=== PATIENT | male | born 1940 | race Caucasian/White ===

== ENCOUNTER 2022-05-07 22:16 | Inpatient (IN) | payer OTHER ==
[~2022-05-07] VITALS: Ht 175.3 cm; Wt 54.9 kg
[2022-05-08 00:13] LABS: HEMATOCRIT 39.2 % (36.7-47.1); MEAN CORPUSCULAR HEMOGLOBIN 28.2 uug (23.8-33.4); MEAN CORPUSCULAR VOLUME 90.1 fL (73.0-96.2); PLATELET COUNT (AUTO) 207 K/uL (152-348)
[2022-05-08 00:21] LABS: CARBON DIOXIDE 26 mmol/L (21-32); CHLORIDE 102 mmol/L (98-107); CREATININE 2.7 mg/dL (0.6-1.3); GLUCOSE 131 mg/dL (74-106); POTASSIUM 3.8 mmol/L (3.5-5.1); UREA NITROGEN, BLOOD 37 mg/dL (7-18)
[2022-05-08 00:34] LABS: ALANINE AMINOTRANSFERASE 21 U/L (16-63); ALKALINE PHOSPHATASE 78 U/L (50-136); ASPARTATE AMINOTRANSFERASE 28 U/L (15-37); BILIRUBIN,DIRECT 0.3 mg/dL (0.0-0.2); BILIRUBIN,TOTAL 0.7 mg/dL (0.2-1.0); TOTAL PROTEIN, SERUM 6.4 g/dL (6.4-8.2)
[2022-05-08] MEDS ORDERED: AZITHROMYCIN 500MG/ D5W 250ML IVPB **ER PYXIS ONLY IV ONE (00:59)
[2022-05-08] MEDS ORDERED: CEFTRIAXONE /D5W 50ML IVPB **ER PYXIS IV ONE (00:59)
[2022-05-08] MEDS ORDERED: AZITHROMYCIN IV 500 MG in IV DEXTROSE 5% 250 ML IV ONE (01:00)
[2022-05-08] MEDS ORDERED: CEFTRIAXONE 1 G in IV DEXTROSE 5% 50 ML IV ONE (01:00)
--- NOTE | 2022-05-08 01:57 | NUR ---
Patient has been authorized to stay as per Elias LAWSON
[2022-05-08] MEDS ORDERED: IV NORMAL SALINE 500 ML IV ONE ×2 (02:00→02:15)
--- NOTE | 2022-05-08 02:20 | NUR ---
Called [facility] for panel call.
[2022-05-08] MEDS ORDERED: ISOS5TAB3 PO (02:31)
[2022-05-08] MEDS ORDERED: ESCI10TA PO (02:31)
[2022-05-08] MEDS ORDERED: FURO20TA4 PO (02:31)
[2022-05-08] MEDS ORDERED: FERR325T23 PO (02:31)
[2022-05-08] MEDS ORDERED: SENN-18 PO (02:31)
[2022-05-08] MEDS ORDERED: ROSU5TAB13 PO (02:31)
[2022-05-08] MEDS ORDERED: ALBU1.25 IH (02:31)
[2022-05-08] MEDS ORDERED: HYDR-894 PO (02:31)
[2022-05-08] MEDS ORDERED: CARV25TA2 PO (02:31)
[2022-05-08] MEDS ORDERED: MEXI150C PO (02:31)
[2022-05-08] MEDS ORDERED: FAMO40TA7 PO (02:31)
[2022-05-08] MEDS ORDERED: FLUT16SP16 NS (02:31)
--- NOTE | 2022-05-08 02:36 | NUR ---
Patient has been accepted by Dr Henry
--- NOTE | 2022-05-08 02:40 | NUR ---
Called for bed. Spoke with Sonia RN - charge nurse. Patient will be transfered to TELE room 318
[2022-05-08] MEDS ORDERED: hydrALAZINE HCL 20 MG/1 ML VIAL IV PRN (03:00)
[2022-05-08] MEDS ORDERED: ACETAMINOPHEN 325 MG TABLET PO PRN (03:00)
[2022-05-08] MEDS ORDERED: MORPHINE SULFATE 2 MG/1 ML DISP.SYRIN IV PRN (03:00)
[2022-05-08] MEDS ORDERED: ONDANSETRON 4 MG/2 ML VIAL IV PRN (03:00)
--- NOTE | 2022-05-08 03:58 | NUR ---
report given to Reva STEVENS
[2022-05-08 05:45] VITALS: BP 109/47
--- NOTE | 2022-05-08 05:53 | NUR ---
Pt. admitted to TELE room 318 , under care of Dr. Henry Belongs List completed Reva RN aware of patient's arrival
[2022-05-08] MEDS ORDERED: ALBUTEROL SULFATE 2.5 MG/ 0.5 ML NEBU NEB PRN (06:15)
[2022-05-08] MEDS ORDERED: ALBUTEROL SULFATE 2.5 MG/3 ML NEBU NEB PRN (07:00)
[2022-05-08] MEDS ORDERED: CARVEDILOL 25 MG TABLET PO SCH ×4 (08:00→09:00)
[2022-05-08] MEDS ORDERED: CARVEDILOL 25 MG TABLET PO ONE (08:00)
[2022-05-08] MEDS ORDERED: ASPIRIN 81 MG TAB.CHEW PO SCH (09:00)
[2022-05-08] MEDS ORDERED: ESCITALOPRAM OXALATE 10 MG TABLET PO SCH (09:00)
[2022-05-08] MEDS ORDERED: FUROSEMIDE 20 MG TABLET PO SCH (09:00)
[2022-05-08] MEDS ORDERED: FLUTICASONE PROP NASAL SPRAY 16 GM BOTTLE NS SCH (09:00)
[2022-05-08] MEDS ORDERED: FAMOTIDINE 20 MG TABLET PO SCH (09:00)
[2022-05-08] MEDS ORDERED: FLUTICASONE/VILANTEROL 1 EACH BLST.W.DEV INH SCH (09:00)
[2022-05-08] MEDS ORDERED: ISOSORBIDE DINITRATE 10 MG TABLET PO SCH (09:00)
[2022-05-08] MEDS ORDERED: FUROSEMIDE 40 MG/4 ML VIAL IV SCH (09:00)
[2022-05-08] MEDS ORDERED: hydrALAZINE HCL 25 MG TABLET PO SCH (09:00)
[2022-05-08] MEDS ORDERED: HEPARIN SODIUM,PORCINE 5,000 UNITS/ML VIAL SQ SCH (09:00)
[2022-05-08 09:12] LABS: CARBON DIOXIDE 28 mmol/L (21-32); CHLORIDE 105 mmol/L (98-107); CREATININE 2.4 mg/dL (0.6-1.3); GLUCOSE 117 mg/dL (74-106); POTASSIUM 4.9 mmol/L (3.5-5.1); UREA NITROGEN, BLOOD 34 mg/dL (7-18)
[2022-05-08 09:23] LABS: HEMATOCRIT 37.5 % (36.7-47.1); MEAN CORPUSCULAR HEMOGLOBIN 28.4 uug (23.8-33.4); MEAN CORPUSCULAR VOLUME 89.5 fL (73.0-96.2); PLATELET COUNT (AUTO) 197 K/uL (152-348)
[2022-05-08 12:00] VITALS: BP 101/49
--- NOTE | 2022-05-08 15:00 | NUR ---
0700..PT AWAKE,ALERT AND IN ACUTE RESP DISTRESS..ALL AM MEDS GIVEN..PT ATE SOME OF BREAKFAST..PT VOIDING WITHOUT DIFFICULTY..PT SKIN WARM AND DRY. 1200.. 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 1430..PT ACCEPTED AT [facility]..PT REMAIN STABLE..FOR 330 PM AMBULANCE [facility]..
--- NOTE | 2022-05-08 16:02 | NUR ---
PT LEFT VIA AMBULANCE WITH EMS TO [facility]..PT LEFT IN STABLE CONDITION..
[2022-05-08] MEDS ORDERED: ATORVASTATIN 10 MG TABLET PO SCH (21:00)
[2022-05-10] MEDS ORDERED: levoFLOXacin 750MG/D5W 750 MG in PREMIXED 1 EACH IV SCH (01:00)
== END 2022-05-08 15:40 | disposition short-term general hospital (02) | DRG 871 ==
LOC: ER 22:19 → TELE3 05-08 02:25
DX: A41.9 Sepsis, unspecified organism (principal); J96.21 Acute and chronic respiratory failure with hypoxia; J69.0 Pneumonitis due to inhalation of food and vomit; N18.4 Chronic kidney disease, stage 4 (severe); I50.22 Chronic systolic (congestive) heart failure; I13.0 Hypertensive heart and chronic kidney disease with heart failure and stage 1 through stage 4 chronic kidney disease, or unspecified chronic kidney disease; C34.90 Malignant neoplasm of unspecified part of unspecified bronchus or lung; Z20.822 Contact with and (suspected) exposure to COVID-19; C61 Malignant neoplasm of prostate; I21.4 Non-ST elevation (NSTEMI) myocardial infarction; I25.10 Atherosclerotic heart disease of native coronary artery without angina pectoris; I25.5 Ischemic cardiomyopathy; J44.9 Chronic obstructive pulmonary disease, unspecified; Z85.528 Personal history of other malignant neoplasm of kidney; Z90.5 Acquired absence of kidney; Z95.1 Presence of aortocoronary bypass graft; Z95.810 Presence of automatic (implantable) cardiac defibrillator; Z92.21 Personal history of antineoplastic chemotherapy
CPT/HCPCS: 36415; 71045; 71250; 83605; 84484; 85025; 87040; 93005; A4663; G0378; J0456; J0696; J1644; J3535; J7040